=== PATIENT | male | born 1975 | race Caucasian/White ===

== ENCOUNTER 2017-01-21 20:48 | Emergency (ER) | payer SELFPAY ==
[~2017-01-21] VITALS: Ht 185.4 cm; Wt 118.0 kg
[2017-01-21] MEDS ORDERED: MOTRIN800 MG PO (21:13)
[2017-01-21] MEDS ORDERED: CLINDAMYCIN300 M1 PO (21:13)
[2017-01-21 21:17] VITALS: BP 129/88
== END 2017-01-21 21:25 | disposition home or self-care (01) | DRG 153 ==
LOC: ED 20:48
DX: J02.9 Acute pharyngitis, unspecified (principal); I10 Essential (primary) hypertension; E11.9 Type 2 diabetes mellitus without complications

== ENCOUNTER 2017-12-12 15:06 | Emergency (ER) | payer SELFPAY ==
[~2017-12-12] VITALS: Ht 185.4 cm; Wt 118.0 kg
[~2017-12-12 15:06] MED LIST: CLINDAMYCIN300 M1 PO; MOTRIN800 MG PO
[2017-12-12 16:30] LABS: HEMATOCRIT 44.9 % (39.0-50.0); HEMOGLOBIN 14.7 g/dl (14.0-18.0); IMMATURE GRANULOCYTES 0.4 % (0.0-1.0); MEAN CORPUSCULAR HGB 26.2 pG CALC (26.0-32.0); MEAN CORPUSCULAR HGB CONC 32.7 g/L CALC (32.0-36.0); NEUT# 7.31 thou/uL (1.82-7.42); RED BLOOD COUNT 5.61 mill/uL (4.70-6.10); RED CELL DISTRI WIDTH 13.7 % (11.5-15.5)
[2017-12-12 16:49] LABS: ALBUMIN 4.4 g/dL (3.2-5.0); ALKALINE PHOSPHATASE 128 u/l (38-126); AMYLASE 218 u/l (30-110); ANION GAP 18 (6-22 (CALC)); BILIRUBIN, TOTAL 0.8 mg/dL (0.0-1.4); BUN 14 mg/dL (9-20); BUN/CREATININE RATIO 13 (12-20 (CALC)); CARBON DIOXIDE 27 mmol/l (22-30); CHLORIDE 100 mmol/l (95-108); CREATININE 1.1 mg/dL (0.7-1.3); GFR > 60 ML/MIN (>=60 (CALC)); GFR FOR AFR.AMER. > 60 ML/MIN (>=60 (CALC)); LIPASE 192 u/l (23-300); POTASSIUM 4.4 mmol/l (3.5-5.1); SGOT/AST 24 u/l (17-59); SGPT/ALT 36 u/l (21-72); SODIUM 141 mmol/l (137-146); TOTAL PROTEIN 8.1 g/dL (6.3-8.2)
[2017-12-12] MEDS ORDERED: CIPROFLOXACN500 MG PO (17:25)
[2017-12-12 18:30] VITALS: BP 116/60
== END 2017-12-12 18:30 | disposition home or self-care (01) | DRG 392 ==
LOC: ED 15:06
PROVIDERS: Emergency Medicine
DX: R10.33 Periumbilical pain (principal); N28.1 Cyst of kidney, acquired; R19.7 Diarrhea, unspecified

== ENCOUNTER 2018-09-23 18:31 | Emergency (ER) | payer SELFPAY ==
[~2018-09-23] VITALS: Ht 185.4 cm; Wt 119.0 kg
[~2018-09-23 18:31] MED LIST changes: +CIPROFLOXACN500 MG PO
[2018-09-23] MEDS ORDERED: ROBITUSSIN200 MG/10 PO (21:04)
[2018-09-23 21:19] VITALS: BP 155/74
== END 2018-09-23 21:19 | disposition home or self-care (01) | DRG 153 ==
LOC: ED 18:31
DX: J06.9 Acute upper respiratory infection, unspecified (principal); I10 Essential (primary) hypertension

== ENCOUNTER 2019-01-01 09:36 | Emergency (ER) | payer SELFPAY ==
[~2019-01-01] VITALS: Ht 185.4 cm; Wt 110.0 kg
[~2019-01-01 09:36] MED LIST changes: +ROBITUSSIN200 MG/10 PO
[2019-01-01] MEDS ORDERED: LISINOPRIL20 M1 PO (10:03)
[2019-01-01] MEDS ORDERED: TORADOL PO (11:22)
[2019-01-01] MEDS ORDERED: ZITHROMAX250 MG PO (11:22)
[2019-01-01] MEDS ORDERED: MEDDOSEPAK PO (11:22)
[2019-01-01 11:30] VITALS: BP 144/77
== END 2019-01-01 11:30 | disposition home or self-care (01) | DRG 153 ==
LOC: ED 09:36
DX: J06.9 Acute upper respiratory infection, unspecified (principal); J40 Bronchitis, not specified as acute or chronic; J02.9 Acute pharyngitis, unspecified; R09.89 Other specified symptoms and signs involving the circulatory and respiratory systems

== ENCOUNTER 2020-08-26 14:07 | Emergency (ER) | payer SELFPAY ==
[~2020-08-26] VITALS: Ht 185.4 cm; Wt 118.0 kg
[~2020-08-26 14:07] MED LIST changes: +LISINOPRIL20 M1 PO; +MEDDOSEPAK PO; +TORADOL PO; +ZITHROMAX250 MG PO
[2020-08-26 15:51] VITALS: BP 144/88
--- NOTE | 2020-08-28 08:25 | NUR ---
Notified patient of positive Covid results. Advised patient to quarantine until contacted by the [facility] with further instructions. Advised patient to return to the ED with any difficulty breathing or other urgent needs. Patient denies symptoms at this time. Patient verbalized understanding.
== END 2020-08-26 15:52 | disposition home or self-care (01) | DRG 179 ==
LOC: ED 14:07
DX: U07.1 COVID-19 (principal); R52 Pain, unspecified; I10 Essential (primary) hypertension; R58 Hemorrhage, not elsewhere classified

== ENCOUNTER 2020-11-17 18:18 | Inpatient (IN) | payer SELFPAY ==
[~2020-11-17] VITALS: Ht 185.4 cm; Wt 116.0 kg
[2020-11-17 19:36] LABS: HEMATOCRIT 39.7 % (39.0-50.0); IMMATURE GRANULOCYTES 0.5 % (0.0-5.0); MEAN CELL VOLUME 79.9 fL CALC (80.0-100.0); MEAN CORPUSCULAR HGB 25.6 pG CALC (26.0-32.0); NEUT# 10.77 thou/uL (1.82-7.42); RED BLOOD COUNT 4.97 mill/uL (4.70-6.10)
[2020-11-17 19:37] LABS: HEMOGLOBIN 12.7 g/dl (14.0-18.0)
[2020-11-17 19:59] LABS: ALBUMIN 3.9 g/dL (3.2-5.0); ALKALINE PHOSPHATASE 98 u/l (38-126); ANION GAP 13 (6-22 (CALC)); BILIRUBIN, TOTAL 0.8 mg/dL (0.0-1.4); BUN 13 mg/dL (9-20); BUN/CREATININE RATIO 14 (12-20 (CALC)); CARBON DIOXIDE 27 mmol/l (22-30); CHLORIDE 97 mmol/l (95-108); GFR > 60 ML/MIN (>=60 (CALC)); GFR FOR AFR.AMER. > 60 ML/MIN (>=60 (CALC)); POTASSIUM 4.1 mmol/l (3.5-5.1); SGOT/AST 19 u/l (17-59); TOTAL PROTEIN 7.6 g/dL (6.3-8.2)
[2020-11-17 20:01] LABS: SODIUM 133 mmol/l (137-146)
[2020-11-17 23:26] VITALS: BP 153/98
[2020-11-18 04:00] VITALS: BP 147/87
[2020-11-18 05:44] LABS: HEMATOCRIT 38.6 % (39.0-50.0); HEMOGLOBIN 12.3 g/dl (14.0-18.0); IMMATURE GRANULOCYTES 0.5 % (0.0-5.0); MEAN CELL VOLUME 79.4 fL CALC (80.0-100.0); MEAN CORPUSCULAR HGB 25.3 pG CALC (26.0-32.0); MEAN CORPUSCULAR HGB CONC 31.9 g/dL CAL (32.0-36.0); NEUT# 9.34 thou/uL (1.82-7.42); RED BLOOD COUNT 4.86 mill/uL (4.70-6.10)
[2020-11-18 06:09] LABS: ALBUMIN 3.3 g/dL (3.2-5.0); ALKALINE PHOSPHATASE 89 u/l (38-126); ANION GAP 13 (6-22 (CALC)); BILIRUBIN, TOTAL 0.7 mg/dL (0.0-1.4); BUN 12 mg/dL (9-20); BUN/CREATININE RATIO 14 (12-20 (CALC)); CARBON DIOXIDE 23 mmol/l (22-30); CHLORIDE 100 mmol/l (95-108); CREATININE 0.9 mg/dL (0.7-1.3); GFR > 60 ML/MIN (>=60 (CALC)); GFR FOR AFR.AMER. > 60 ML/MIN (>=60 (CALC)); POTASSIUM 3.8 mmol/l (3.5-5.1); SGOT/AST 16 u/l (17-59); SODIUM 132 mmol/l (137-146); TOTAL PROTEIN 6.7 g/dL (6.3-8.2)
[2020-11-18 07:45] VITALS: BP 141/88
[2020-11-18 14:55] VITALS: BP 153/91
[2020-11-18 19:00] VITALS: BP 159/89
[2020-11-19] VITALS (11 sets, daily range): BP systolic 84–152; BP diastolic 55–105
[2020-11-19 02:40] LABS: HEMATOCRIT 37.7 % (39.0-50.0); HEMOGLOBIN 12.2 g/dl (14.0-18.0); MEAN CORPUSCULAR HGB 25.6 pG CALC (26.0-32.0); MEAN CORPUSCULAR HGB CONC 32.4 g/dL CAL (32.0-36.0); RED BLOOD COUNT 4.77 mill/uL (4.70-6.10)
[2020-11-19 03:00] LABS: ANION GAP 11 (6-22 (CALC)); BUN 10 mg/dL (9-20); BUN/CREATININE RATIO 13 (12-20 (CALC)); CARBON DIOXIDE 24 mmol/l (22-30); CHLORIDE 101 mmol/l (95-108); CREATININE 0.8 mg/dL (0.7-1.3); GFR > 60 ML/MIN (>=60 (CALC)); GFR FOR AFR.AMER. > 60 ML/MIN (>=60 (CALC)); MAGNESIUM 1.9 mg/dL (1.6-2.3); POTASSIUM 3.9 mmol/l (3.5-5.1); SODIUM 133 mmol/l (137-146)
[2020-11-20 02:44] LABS: HEMOGLOBIN 13.7 g/dl (14.0-18.0); MEAN CELL VOLUME 79.5 fL CALC (80.0-100.0); MEAN CORPUSCULAR HGB 25.3 pG CALC (26.0-32.0); MEAN CORPUSCULAR HGB CONC 31.9 g/dL CAL (32.0-36.0); RED BLOOD COUNT 5.41 mill/uL (4.70-6.10)
[2020-11-20 02:54] LABS: ANION GAP 12 (6-22 (CALC)); BUN 12 mg/dL (9-20); BUN/CREATININE RATIO 14 (12-20 (CALC)); CARBON DIOXIDE 27 mmol/l (22-30); CHLORIDE 100 mmol/l (95-108); CREATININE 0.8 mg/dL (0.7-1.3); GFR > 60 ML/MIN (>=60 (CALC)); GFR FOR AFR.AMER. > 60 ML/MIN (>=60 (CALC)); POTASSIUM 4.5 mmol/l (3.5-5.1); SODIUM 134 mmol/l (137-146)
[2020-11-20 03:27] VITALS: BP 129/71
[2020-11-20 09:49] VITALS: BP 138/82
[2020-11-20] MEDS ORDERED: BACTRIM DS1 TAB PO (14:00)
[2020-11-20] MEDS ORDERED: METFORMIN500 M2 PO (14:22)
[2020-11-20] MEDS ORDERED: GLIPIZIDE ER5 M1 PO (14:22)
[2020-11-20] MEDS ORDERED: LANCET MICRO XX (14:23)
[2020-11-20] MEDS ORDERED: ONE TOUCH ULTRA 50 XX (14:24)
[2020-11-20] MEDS ORDERED: [UNRECOGNIZED DRUG - REMARK] (14:25)
[2020-11-20] MEDS ORDERED: HYDROCO/APAP1 TA9 PO (14:32)
[2020-11-20] MEDS ORDERED: LISINOPRIL20 MG PO (15:30)
== END 2020-11-20 15:49 | disposition home or self-care (01) | DRG 572 ==
LOC: ED 18:18 → ED-I 20:28 → MS2 20:40 → ED 20:40 → MS2 11-18 20:30
PROVIDERS: Family Medicine; Nurse Practitioner; Nurse Practitioner Family; ADMIT Internal Medicine; ATTEND Internal Medicine
PROC: 0H9CXZZ Drainage of Left Upper Arm Skin, External Approach (ICD-10-PCS; principal; 2020-11-17)
PROC: 0JBF0ZZ Excision of Left Upper Arm Subcutaneous Tissue and Fascia, Open Approach (ICD-10-PCS; 2020-11-19)
DX: L02.414 Cutaneous abscess of left upper limb (principal); L72.3 Sebaceous cyst; E11.65 Type 2 diabetes mellitus with hyperglycemia; I10 Essential (primary) hypertension; Z20.822 Contact with and (suspected) exposure to COVID-19
CPT/HCPCS: J1650; J3370

== ENCOUNTER 2022-06-08 16:28 | Emergency (ER) | payer SELFPAY ==
[~2022-06-08] VITALS: Ht 185.4 cm; Wt 116.0 kg
[~2022-06-08 16:28] MED LIST changes: +BACTRIM DS1 TAB PO; +GLIPIZIDE ER5 M1 PO; +HYDROCO/APAP1 TA9 PO; +LANCET MICRO XX; +LISINOPRIL20 MG PO; +METFORMIN500 M2 PO; +ONE TOUCH ULTRA 50 XX; +[UNRECOGNIZED DRUG - REMARK]
[2022-06-08] MEDS ORDERED: NAPROXEN500 MG PO (17:22)
[2022-06-08 18:06] VITALS: BP 147/95
== END 2022-06-08 19:05 | disposition home or self-care (01) | DRG 556 ==
LOC: ED 16:28
DX: M25.561 Pain in right knee (principal); I10 Essential (primary) hypertension; E11.9 Type 2 diabetes mellitus without complications; X50.0XXA Overexertion from strenuous movement or load, initial encounter

== ENCOUNTER 2023-02-24 18:11 | Emergency (ER) | payer SELFPAY ==
[~2023-02-24] VITALS: Ht 185.4 cm; Wt 100.0 kg
[2023-02-24] VITALS (9 sets, daily range): BP systolic 116–155; BP diastolic 76–93
[~2023-02-24 18:11] MED LIST changes: +NAPROXEN500 MG PO
[2023-02-24 19:05] LABS: BASO% 0.4 % (0-3); EOS% 2.5 % (0-8); HEMATOCRIT 43.4 % (39.0-50.0); HEMOGLOBIN 14.4 g/dl (14.0-18.0); IMMATURE GRANULOCYTES 0.3 % (0.0-5.0); MEAN CELL VOLUME 77.6 fL CALC (80.0-100.0); MEAN CORPUSCULAR HGB 25.8 pG CALC (26.0-32.0); MEAN CORPUSCULAR HGB CONC 33.2 g/dL CAL (32.0-36.0); MONO% 4.5 % (2-13); NEUT# 7.6 thou/uL (1.82-7.42); NEUT% 66.3 % (42-76); RED BLOOD COUNT 5.59 mill/uL (4.70-6.10); RED CELL DISTRI WIDTH 12.9 % (11.5-15.5)
[2023-02-24 19:12] LABS: ALKALINE PHOSPHATASE 117 u/l (38-126); ANION GAP 12 (6-22 (CALC)); BILIRUBIN, TOTAL 0.7 mg/dL (0.2-1.3); BUN 14 mg/dL (9-20); BUN/CREATININE RATIO 15 (12-20 (CALC)); CARBON DIOXIDE 26 mmol/l (22-30); CHLORIDE 101 mmol/l (95-108); CREATININE 0.9 mg/dL (0.7-1.3); GFR FOR AFR.AMER. > 60 ML/MIN (>=60 (CALC)); GFR OTHER RACES > 60 ML/MIN (>=60 (CALC)); LIPASE 82 u/l (23-300); POTASSIUM 3.9 mmol/l (3.5-5.1); SGOT/AST 23 u/l (17-59); SODIUM 135 mmol/l (137-146)
[2023-02-24 19:15] LABS: ALBUMIN 4.3 g/dL (3.2-5.0); TOTAL PROTEIN 8.2 g/dL (6.3-8.2)
[2023-02-24] MEDS ORDERED: METFORMIN HCL1000 MG PO (19:43)
[2023-02-24] MEDS ORDERED: ZESTRIL10 M1 PO (19:43)
== END 2023-02-24 20:27 | disposition home or self-care (01) | DRG 639 ==
LOC: ED 18:11
PROVIDERS: Family Medicine
DX: E11.65 Type 2 diabetes mellitus with hyperglycemia (principal); I10 Essential (primary) hypertension; T38.3X6A Underdosing of insulin and oral hypoglycemic [antidiabetic] drugs, initial encounter; Z91.120 Patient's intentional underdosing of medication regimen due to financial hardship; Z79.4 Long term (current) use of insulin

== ENCOUNTER 2024-05-30 10:23 | Observation (INO) | payer SELFPAY ==
[~2024-05-30] VITALS: Ht 185.4 cm; Wt 115.9 kg
[2024-05-30] VITALS (13 sets, daily range): BP systolic 107–128; BP diastolic 59–85
[~2024-05-30 10:23] MED LIST changes: +METFORMIN HCL1000 MG PO; +ZESTRIL10 M1 PO
[2024-05-30 10:51] LABS: BASO% 0.2 % (0-3); EOS% 1.1 % (0-8); HEMATOCRIT 41.2 % (39.0-50.0); IMMATURE GRANULOCYTES 0.3 % (0.0-5.0); LYMPH% 16.9 % (15-41); MEAN CELL VOLUME 80.2 fL CALC (80.0-100.0); MEAN CORPUSCULAR HGB 27.2 pG CALC (26.0-32.0); MONO% 5.4 % (2-13); NEUT# 13.57 thou/uL (1.82-7.42); NEUT% 76.1 % (42-76); RED BLOOD COUNT 5.14 mill/uL (4.70-6.10); RED CELL DISTRI WIDTH 12.9 % (11.5-15.5)
[2024-05-30] MEDS ORDERED: SODIUM CHLORIDE 0.9% 1,000 ML IV ONE ×2 (11:05→12:15)
[2024-05-30] MEDS ORDERED: PIPERACILLIN Sodium-Tazobactam 3.375 GM in SODIUM CHLORIDE 0.9% 100 ML IV ONE (11:05)
[2024-05-30] MEDS ORDERED: KETOROLAC TROMETHAMINE 15 MG/ML SDV IV ONE (11:05)
[2024-05-30 11:19] LABS: URINE BLOOD DIPSTICK Trace-intact (NEGATIVE); URINE GLUCOSE - DIPSTICK >=1000 mg/dL (NEGATIVE); URINE KETONE Trace mg/dL (NEGATIVE); URINE LEUK ESTERASE Negative (NEGATIVE); URINE NITRITE - DIPSTICK Negative (Negative); URINE PH 5.5 (4.5-8.0); URINE PROTEIN - DIPSTICK 100 mg/dL (NEG-TRACE); URINE SPECIFIC GRAVITY 1.025
[2024-05-30 11:20] LABS: URINE COLOR Dark yellow
[2024-05-30 11:26] LABS: URINE RBC 0-2 RBC/hpf (0-5)
[2024-05-30 11:27] LABS: URINE HYALINE CAST MODERATE lpf (NONE-RARE)
[2024-05-30 11:34] LABS: ALBUMIN 4.3 g/dL (3.2-5.0); BILIRUBIN, TOTAL 1.2 mg/dL (0.2-1.3); CREATININE 1.1 mg/dL (0.7-1.3); POTASSIUM 4.1 mmol/l (3.5-5.1); TOTAL PROTEIN 8.2 g/dL (6.3-8.2)
[2024-05-30] MEDS ORDERED: LIDOcaine HCl 1% (Local Anesth.) 20 ML VIAL ONE (13:12)
[2024-05-30] MEDS ORDERED: FAMOTIDINE 10MG/ML 2ML SDV IV ONE (13:20)
[2024-05-30] MEDS ORDERED: PERCOCET 5/321 COMBO PO (14:59)
[2024-05-30] MEDS ORDERED: oxyCODONE 5MG/ ACETAMINOPHEN 325MG TAB PO PRN (15:50)
[2024-05-30] MEDS ORDERED: ONDANSETRON HCl 4 MG/2 ML SDV IV PRN (15:50)
[2024-05-30] MEDS ORDERED: SODIUM CHLORIDE 0.9% 1,000 ML IV PRN (15:50)
[2024-05-30] MEDS ORDERED: HYDROmorphone HCL 2 MG/AMP IV PRN (15:50)
[2024-05-30] MEDS ORDERED: ACETAMINOPHEN 100 ML IV ONE (16:00)
[2024-05-30] MEDS ORDERED: KETOROLAC TROMETHAMINE 15 MG/ML SDV ONE (16:00)
[2024-05-30] MEDS ORDERED: LABETALOL HCL 100 MG/20 ML VIAL IV ONE (16:50)
[2024-05-30] MEDS ORDERED: SODIUM CHLORIDE 0.9% 1,000 ML BAG IV ONE (16:50)
[2024-05-30] MEDS ORDERED: SUGAMMADEX SODIUM 200 MG/2 ML SDV IV ONE (16:50)
[2024-05-30] MEDS ORDERED: PROPOFOL 200 MG/20 ML VIAL IV ONE (16:50)
[2024-05-30] MEDS ORDERED: ROCURONIUM BROMIDE 10 MG/ML 5ML VIAL IV ONE (16:50)
[2024-05-30] MEDS ORDERED: GLYCOPYRROLATE 0.2 MG/ML IV ONE (16:50)
[2024-05-30] MEDS ORDERED: SUCCINYLCHOLINE CHLORIDE 20 MG/ML 10ML VIAL IV ONE (16:50)
[2024-05-30] MEDS ORDERED: PIPERACILLIN Sodium-Tazobactam 3.375 GM in SODIUM CHLORIDE 0.9% 100 ML IV SCH (18:00)
[2024-05-30] MEDS ORDERED: KETOROLAC TROMETHAMINE 15 MG/ML SDV IV SCH (18:00)
[2024-05-31 00:09] VITALS: BP 107/61
[2024-05-31 03:15] VITALS: BP 134/84
[2024-05-31 04:55] VITALS: BP 134/84
[2024-05-31 06:45] VITALS: BP 132/85
[2024-05-31 10:47] VITALS: BP 125/79
== END 2024-05-31 12:57 | disposition home or self-care (01) | DRG 399 ==
LOC: ED 10:23 → ED-I 11:58 → ED 12:18 → ED-I 12:19 → MS2 16:40
PROVIDERS: Family Medicine; ADMIT Surgery; ATTEND Surgery
PROC: 0DTJ4ZZ Resection of Appendix, Percutaneous Endoscopic Approach (ICD-10-PCS; principal; 2024-05-30)
DX: K35.30 Acute appendicitis with localized peritonitis, without perforation or gangrene (principal); I10 Essential (primary) hypertension; E11.9 Type 2 diabetes mellitus without complications; E66.9 Obesity, unspecified; Z20.822 Contact with and (suspected) exposure to COVID-19
CPT/HCPCS: J0131; Q9967